=== PATIENT | female | born 1945 | race Two or more races ===

== ENCOUNTER 2018-08-14 13:34 | Inpatient (IN) | payer MEDICARE, MEDICAID | END 2018-08-16 15:45 | disposition home or self-care (01) | LOC: ER 13:34 → TELE 19:52 → TELE-EAST 21:48 | DX: I16.1 Hypertensive emergency (principal); I16.9 Hypertensive crisis, unspecified; R65.10 Systemic inflammatory response syndrome (SIRS) of non-infectious origin without acute organ dysfunction; I10 Essential (primary) hypertension; E11.9 Type 2 diabetes mellitus without complications; Z79.84 Long term (current) use of oral hypoglycemic drugs; I11.9 Hypertensive heart disease without heart failure; R10.84 Generalized abdominal pain; E11.8 Type 2 diabetes mellitus with unspecified complications; E87.6 Hypokalemia ==

== ENCOUNTER 2020-12-12 19:02 | Emergency (ER) | payer MEDICAID, MEDICARE, OTHER ==
[~2020-12-12] VITALS: Ht 157.5 cm; Wt 63.5 kg
[~2020-12-12 19:02] MED LIST: ATOR40TA52 PO; CLOP75TA28 PO; FERR-7 PO; GLIP5TAB12 PO; HYDR-4298 PO; INSLANTI SC; LACTCHW3 PO; LATA0.0019 EACHEYE; LISI-275 PO; MEMA1CAP2 PO; METO-158 PO; ONDA-101 PO; PANT40TA2 PO; PRED1SUS4 OP; SERT50TA19 PO
[2020-12-13] MEDS ORDERED: IBUPROFEN 800 MG TAB PO ONE (03:15)
[2020-12-13] MEDS ORDERED: ACETAMINOPHEN 500 MG TAB PO ONE (03:15)
[2020-12-13 03:26] VITALS: BP 168/79
== END 2020-12-13 04:19 | disposition home or self-care (01) ==
LOC: EDBD 19:02 → EDUNIT# 19:02 → ER 19:02
DX: S23.41XA Sprain of ribs, initial encounter (principal); S70.02XA Contusion of left hip, initial encounter; M54.5 Low back pain; N39.0 Urinary tract infection, site not specified; I10 Essential (primary) hypertension; E11.9 Type 2 diabetes mellitus without complications; E78.5 Hyperlipidemia, unspecified; Z86.73 Personal history of transient ischemic attack (TIA), and cerebral infarction without residual deficits; Z79.01 Long term (current) use of anticoagulants; Z79.4 Long term (current) use of insulin; Z79.899 Other long term (current) drug therapy; W18.2XXA Fall in (into) shower or empty bathtub, initial encounter; Y93.89 Activity, other specified; Y92.89 Other specified places as the place of occurrence of the external cause; Y99.8 Other external cause status
CPT/HCPCS: 71101; 72220; 73030; 73090; 73502